=== PATIENT | female | born 1975 | race Caucasian/White ===

== ENCOUNTER 2018-10-28 11:56 | Outpatient (REF) | payer MEDICAID, SELFPAY ==
[2018-10-28 20:37] LABS: Glucose 91 mg/dL (70-100)
== END 2018-10-28 12:16 ==
LOC: NCHCN 11:56
PROVIDERS: PCP Nurse Practitioner Family; Visit Provider Nurse Practitioner Family
DX: E16.2 Hypoglycemia, unspecified (principal)
CPT/HCPCS: 82947

== ENCOUNTER 2019-11-03 20:35 | Outpatient (REF) | payer OTHER, SELFPAY ==
[2019-11-03 19:48] LABS: Hemoglobin A1C 5.8 % (3.8-5.6)
[2019-11-03 20:15] LABS: Calculated LDL 135 mg/dL (<100); Cholesterol 188 mg/dL (<200); HDL Cholesterol 35 mg/dL (40-60); Triglyceride 92 mg/dL (<150)
== END 2019-11-03 20:55 ==
LOC: NCHCN 20:35
PROVIDERS: PCP Nurse Practitioner Family; Visit Provider Nurse Practitioner Family
DX: I10 Essential (primary) hypertension (principal); R73.9 Hyperglycemia, unspecified
CPT/HCPCS: 80061; 83036

== ENCOUNTER 2021-01-26 09:38 | Outpatient (REF) | payer BC, SELFPAY ==
[2021-01-26 15:47] LABS: Hemoglobin A1C 5.8 % (<5.7)
[2021-01-26 16:05] LABS: Anion Gap 8.5 mmol/L (3-11); BUN 11 mg/dL (7-18); CO2 27.5 mmol/L (21.0-32.0); CREATININE 0.7 mg/dL (0.55-1.02); Calcium 8.7 mg/dL (8.5-10.1); Chloride 104 mmol/L (98-107); Glucose 99 mg/dL (74-106); Potassium 4.3 mmol/L (3.5-5.1); Sodium 140 mmol/L (136-145); TSH (W/Ref FT4) 0.81 uIU/mL (0.36-3.74)
[2021-01-26 16:31] LABS: Calculated LDL 118 mg/dL (<100); Cholesterol 208 mg/dL (<200); HDL Cholesterol 58 mg/dL (40-60); Triglyceride 163 mg/dL (<150)
== END 2021-01-26 09:39 | disposition home or self-care (01) ==
LOC: NCHCN 09:38
PROVIDERS: PCP Nurse Practitioner Family; Visit Provider Nurse Practitioner Family
DX: R00.2 Palpitations (principal); I10 Essential (primary) hypertension; R73.03 Prediabetes; E78.2 Mixed hyperlipidemia
CPT/HCPCS: 80048; 80061; 83036; 84443

== ENCOUNTER 2022-10-18 16:23 | Outpatient (REF) | payer OTHER, SELFPAY ==
[2022-10-18 20:59] LABS: ALT 18 U/L (14-59); AST 20 U/L (15-37); Albumin 3.1 g/dL (3.4-5.0); Alkaline Phosphatase 98 U/L (46-116); Anion Gap 7.9 mmol/L (3-11); BUN 12 mg/dL (7-18); CO2 27.1 mmol/L (21.0-32.0); CREATININE 0.8 mg/dL (0.55-1.02); Calcium 8.6 mg/dL (8.5-10.1); Chloride 103 mmol/L (98-107); Estimated GFR 91.97 (mL/min/1.73m2); Glucose 104 mg/dL (74-106); Potassium 3.6 mmol/L (3.5-5.1); Sodium 138 mmol/L (136-145)
[2022-10-18 21:12] LABS: Bilirubin, Total 0.3 mg/dL (0.2-1.0)
== END 2022-10-18 16:24 | disposition home or self-care (01) ==
LOC: NCHCN 16:23
PROVIDERS: PCP Nurse Practitioner Family; Visit Provider Nurse Practitioner Family
DX: I10 Essential (primary) hypertension (principal)
CPT/HCPCS: 80053

== ENCOUNTER 2025-02-24 11:55 | Outpatient (REF) | payer OTHER, SELFPAY ==
[2025-02-24 19:00] LABS: HCT 43.2 % (36.0-46.0); HGB 13.8 g/dL (11.2-15.7); MCH 27.5 pg (27.0-33.0); MCHC 31.9 % (32.0-36.0); MCV 86 fL (80-95); MPV 9.6 fL (8.0-11.0); Platelet Count 341 10^3/uL (130-400); RBC 5.02 10^6/uL (3.93-5.22); RDW 14.5 % (11.7-14.6); RDW-SD 45.8 fL; WBC 6.57 10^3/uL (4.4-10.8)
[2025-02-24 19:42] LABS: ALT 35 U/L (14-59); AST 25 U/L (15-37); Albumin 3.4 g/dL (3.4-5.0); Alkaline Phosphatase 88 U/L (46-116); Anion Gap 3.7 mmol/L (3-11); BUN 11 mg/dL (7-18); Bilirubin, Total 0.8 mg/dL (0.2-1.0); CO2 28.3 mmol/L (21.0-32.0); CREATININE 0.5 mg/dL (0.55-1.02); Calcium 8.6 mg/dL (8.5-10.1); Calculated LDL 102 mg/dL (<100); Chloride 105 mmol/L (98-107); Cholesterol 177 mg/dL (<200); Estimated GFR 115.62 (mL/min/1.73m2); Glucose 94 mg/dL (74-106); HDL Cholesterol 62 mg/dL (>or=50); Potassium 4.7 mmol/L (3.5-5.1); Sodium 137 mmol/L (136-145); Total Protein 7.2 g/dL (6.4-8.2); Triglyceride 68 mg/dL (<150); Vitamin D 25 Total 47 ng/mL (30-100)
[2025-02-24 19:51] LABS: Vitamin B12 > 2000 pg/mL (193-986)
== END 2025-02-24 11:56 | disposition home or self-care (01) ==
LOC: NCHCN 11:55
PROVIDERS: PCP Nurse Practitioner Family; Visit Provider Nurse Practitioner Family
DX: I10 Essential (primary) hypertension (principal); E78.2 Mixed hyperlipidemia; Z98.84 Bariatric surgery status
CPT/HCPCS: 80053; 80061; 82306; 85027; 82607; 82746